=== PATIENT | male | born 1965 | race Caucasian/White ===

== ENCOUNTER 2019-09-11 11:58 | Inpatient (IN) ==
[2019-09-11] MEDS ORDERED: MOTRIN PO PRN (12:53)
[2019-09-11] MEDS ORDERED: PHENOBARBITAL IV PRN (12:53)
[2019-09-11] MEDS ORDERED: ZOFRAN IV PRN (12:53)
[2019-09-11] MEDS ORDERED: TYLENOL PO PRN (12:53)
[2019-09-11] MEDS ORDERED: D5W 1,000 ML IV PRN (12:53)
[2019-09-11] MEDS ORDERED: IMODIUM PO PRN ×2 (12:53)
[2019-09-11] MEDS ORDERED: MAALOX PLUS LIQUID PO PRN (12:53)
[2019-09-11] MEDS ORDERED: DULCOLAX PR PRN (12:53)
[2019-09-11] MEDS ORDERED: ZOFRAN IM PRN (12:53)
[2019-09-11] MEDS ORDERED: NICODERM PATCH TD PRN (12:53)
[2019-09-11] MEDS ORDERED: SENOKOT PO PRN (12:53)
[2019-09-11] MEDS ORDERED: ZOFRAN ODT PO PRN (12:53)
[2019-09-11] MEDS ORDERED: TUBERSOL ID ONE (12:53)
[2019-09-11] MEDS ORDERED: NICOTINE GUM BUCCAL PRN (12:53)
[2019-09-11 13:52] LABS: HEMATOCRIT 43.3 % (42.0-52.0); HEMOGLOBIN 15.1 g/dL (14.0-18.0); MCH 31.3 PG (27-31); MCHC 34.9 g/dL (33-37); MCV 89.6 FL (81-99); MPV 9.2 FL (7.4-10.4); RBC 4.83 XMIL (4.7-6.1); WBC 11.06 X1000 (4.8-10.8)
[2019-09-11 14:15] LABS: INR 0.95; PROTIME 13.1 Seconds (11.0-16.0)
[2019-09-11 14:24] LABS: ESTIMATED GFR > 60
[2019-09-11 14:25] LABS: AGAP 14; ALBUMIN 4.2 g/dL (3.5-5.0); ALKALINE PHOSPHATASE 96 U/L (32-122); AMYLASE 41 U/L (20-200); BUN 10 mg/dL (8-22); CALCIUM 9.6 mg/dL (8.8-10.2); CHLORIDE 89 mmol/L (98-107); COSMO 264; CREATININE 0.7 mg/dL (0.7-1.2); GLUCOSE 109 mg/dL (70-104); GOT 45 U/L (10-34); GPT 40 U/L (10-44); LIPASE 26 U/L (13-60); POTASSIUM 3.4 mmol/L (3.5-5.1); SODIUM 132 mmol/L (136-145); TCO2 29 mmol/L (25-35); TOTAL PROTEIN 7.9 g/dL (6.3-8.3)
[2019-09-11 17:39] LABS: URINE SOURCE CLEAN CATCH
[2019-09-11 17:43] LABS: BILIRUBIN URINE NEGATIVE (NEGATIVE); BLOOD URINE NEGATIVE (NEGATIVE); COLOR YELLOW; GLUCOSE URINE NEGATIVE (NEGATIVE); KETONE URINE NEGATIVE (NEGATIVE); LEUKOCYTES URINE SMALL (NEGATIVE); NITRITE URINE NEGATIVE (NEGATIVE); PROTEIN URINE NEGATIVE (NEGATIVE); SP GRAVITY URINE 1.011; TURBIDITY URINE CLEAR (CLEAR); UROBILINOGEN URINE NORMAL (NORMAL)
[2019-09-11 17:45] LABS: UR EPITHELIAL CELLS <10 /HPF (<10); URINE BACTERIA NEGATIVE /HPF; URINE RBC <10 /HPF (<10); URINE WBC <10 /HPF (<10)
[2019-09-11 18:02] LABS: UR AMPHETAMINES QUAL NONE DETECTED (NONE DETECT); UR BARBITUATES QUAL NONE DETECTED (NONE DETECT); UR BENZODIAZEPIN QUAL NONE DETECTED (NONE DETECT); UR CANNABINOIDS QUAL PRESUMPTIVE POSITIVE (NONE DETECT); UR COCAINE QUAL NONE DETECTED (NONE DETECT); UR METHADONE QUAL NONE DETECTED (NONE DETECT); UR METHAMPHETAMINE QUAL NONE DETECTED (NONE DETECT); UR OPIATES QUAL NONE DETECTED (NONE DETECT); UR OXYCODONE QUAL NONE DETECTED (NONE DETECT); UR PCP QUAL NONE DETECTED (NONE DETECT); UR PROPOXYPHENE QUAL NONE DETECTED (NONE DETECT); UR TCA QUAL NONE DETECTED (NONE DETECT)
[2019-09-11] MEDS ORDERED: ATARAX PO PRN (19:09)
[2019-09-11] MEDS ORDERED: SALINE LOCK IV FLUID XX ONE (19:09)
[2019-09-11] MEDS ORDERED: ROBAXIN PO PRN (19:09)
[2019-09-11] MEDS ORDERED: BENTYL PO PRN (19:09)
[2019-09-11] MEDS: LIBRIUM PO SCH (21:58)
[2019-09-12] MEDS: SEROQUEL PO PRN ×2 (00:16→20:59)
[2019-09-12] MEDS: DESYREL PO PRN ×2 (01:20→22:19)
[2019-09-12] MEDS: PROTONIX PO SCH ×2 (03:46→15:25)
[2019-09-12] MEDS: LIBRIUM PO SCH ×4 (03:46→20:59)
[2019-09-12] MEDS ORDERED: SYNTHROID PO SCH (09:00)
[2019-09-12] MEDS ORDERED: M.V.I.-12 10 ML, FOLIC ACID 1 MG, MAGNESIUM SULFATE 1 GM, THIAMINE 100 MG in NS 1,000 ML IV ONE (09:00)
[2019-09-12] MEDS: VITAMIN B-1 PO SCH (10:37)
[2019-09-12] MEDS: FOLIC ACID PO SCH (10:38)
[2019-09-12] MEDS: THERA M PLUS PO SCH (10:38)
--- NOTE | 2019-09-12 19:04 | PROGRESS NOTE ---
DATE: 09/12/2019 SUBJECTIVE: The patient notes that he is feeling a lot better. His tremors have improved. Nausea and vomiting has improved. His abdominal pain has improved. Still fatigued. Still having lots of cravings. OBJECTIVE: Vital signs reviewed. He is awake, alert, pleasant. He is in no distress.HEENT: Normocephalic. Neck supple. Cardiovascular: Regular rate. Chest clear. Abdomen soft. Extremities: Moves all extremities. Neurologic: No changes. ASSESSMENT: 1. Nausea and vomiting. 2. Abdominal. 3. Myalgias. 4. Paresthesias. 5. Paroxysmal sweating. 6. Alcohol abuse, withdrawal and stabilization. PLAN: We will continue the patient in the hospital. Continue to wean as tolerated cc: Thierno Brown MD MTDD
[2019-09-13] MEDS: LIBRIUM PO SCH ×4 (02:41→20:34)
[2019-09-13] MEDS: SYNTHROID PO SCH (06:13)
[2019-09-13] MEDS: PROTONIX PO SCH (06:13)
[2019-09-13] MEDS: THERA M PLUS PO SCH (09:39)
[2019-09-13] MEDS: VITAMIN B-1 PO SCH (09:39)
[2019-09-13] MEDS: FOLIC ACID PO SCH (09:39)
--- NOTE | 2019-09-13 17:18 | PROGRESS NOTE ---
DATE: 09/13/2019 SUBJECTIVE: Patient notes he is feeling a lot better. Denies any fevers, chills, cough, or congestion. PHYSICAL EXAMINATION: Vital Signs: Reviewed. General: Patient is awake and alert. He is in no distress. HEENT: Normocephalic. Neck: Supple. Cardiovascular: Regular rate. Chest: Clear. Abdomen: Soft. Obese. Extremities: Moves all extremities. Neurologic: No focal changes. Skin: Warm and dry. No rashes. ASSESSMENT: 1. Nausea and vomiting. 2. Abdominal pain. 3. Tremors. 4. Myalgias. 5. Paresthesias. 6. Mixed hypertension. 7. Alcohol abuse withdrawal and stabilization. PLAN: We will continue patient in the hospital. Continue to follow. Further orders as needed. Expected to be in the hospital 2 to 3 more days as we wean his librium. cc: Thierno Brown MD MTDD
--- NOTE | 2019-09-13 18:23 | HISTORY AND PHYSICAL ---
CHIEF COMPLAINT: Nausea, vomiting. HISTORY OF PRESENT ILLNESS: The patient is a 54-year-old male who unfortunately has had a longstanding history of alcohol use and abuse. He started drinking again. He is currently having nausea, vomiting, tremors and myalgias. He presented the hospital for assistance. SOCIAL HISTORY: Patient is single, he is on disability. Lives at home in [place]. PAST MEDICAL HISTORY: Significant for history of necrotizing fasciitis 4 years ago. He actually went into DTs while he was in the ICU due to this. History of hypertension, blackouts that are alcohol related. MEDICATIONS: Indapamide 2.5, Synthroid 88, escitalopram 20 and losartan 100. ALLERGIES: No known drug allergies. REVIEW OF SYSTEMS: CINA score is 20 secondary to nausea, vomiting, paroxysmal sweating, tremors, anxiety, he is unable sit still, he is agitated, has a headache, he has had insomnia, decreased oral intake. Denies any fevers, chills, cough, congestion, denies any dysuria, frequency, urgency. Does have tremors. Notes that his withdrawal symptoms continue to worsen the longer that he does not drink. SUBSTANCE ABUSE HISTORY: Patient was in treatment in 2014 inpatient. States over 6 weeks while he was inpatient, states that he has difficulty stopping drinking because his entire family drinks, he started at 21, currently drinks 18 to 24 beers a day. Does not smoke or use other illicit substances. FAMILY HISTORY: Positive for alcoholism. PHYSICAL: Vital signs reviewed. Patient is awake, alert, in no current respiratory distress, pleasant to talk with. HEENT: Normocephalic. Neck: Supple. CV: Regular rate. Chest: Clear . Abdomen: Soft. Extremities: Moves all extremities. Neuro: No focal changes . Skin: Warm dry, no rashes. He does have tremors with arms extended. He is frequently pacing about in the room while attempting to talk. ASSESSMENT: 1. Nausea, vomiting. 2. Abdominal pain. 3. Tremors. 4. Myalgias. 5. Paresthesias. 6. Hypertension. 7. Obesity. 8. Alcohol abuse withdrawal and stabilization. PLAN: We are going to admit him to the hospital, continue to follow for withdrawal. Will stabilize with Librium, continue counseling. Further orders as needed. cc: Thierno Brown MD
[2019-09-13] MEDS: SEROQUEL PO PRN (23:37)
[2019-09-14] MEDS: DESYREL PO PRN ×2 (01:01→01:40)
[2019-09-14] MEDS: COZAAR PO SCH ×2 (01:01→14:24)
[2019-09-14] MEDS: THERA M PLUS PO SCH (08:47)
[2019-09-14] MEDS: LIBRIUM PO SCH ×3 (08:47→20:48)
[2019-09-14] MEDS: FOLIC ACID PO SCH (08:47)
[2019-09-14] MEDS: PROTONIX PO SCH (08:47)
[2019-09-14] MEDS: LEXAPRO PO SCH (08:47)
[2019-09-14] MEDS: VITAMIN B-1 PO SCH (08:48)
[2019-09-14] MEDS: SYNTHROID PO SCH (08:48)
[2019-09-14] MEDS ORDERED: COZAAR PO SCH (09:00)
--- NOTE | 2019-09-14 12:43 | PROGRESS NOTE ---
DATE: 09/14/2019 SUBJECTIVE: Patient notes he is feeling a lot better. Denies any fevers or chills. Denies cough or congestion. Denies chest pain or palpitations. PHYSICAL EXAMINATION: Vital Signs: Reviewed and stable. His blood pressures have actually started elevating up to 171/70, we have not restarted his home medicines yet. general: Patient is awake, alert. He is in no current respiratory distress. HEENT: Normocephalic. Neck: Supple. Cardiovascular: Regular rate. Chest: Clear. Abdomen: Soft, nondistended, nontender, obese. Extremities: Moves all extremities. Neurologic: No changes. ASSESSMENT: 1. Nausea and vomiting. 2. Abdominal pain. 3. Myalgias. 4. Paresthesias. 5. Tremors. 6. Paroxysmal sweating. 7. Alcohol abuse withdrawal and stabilization. 8. Morbid obesity. 9. Hypertension. PLAN: We are going to restart the patient's home blood pressure medications. Follow his blood pressure. Continue to wean Librium, continue counseling, further orders as needed. cc: Thierno Brown MD
[2019-09-14] MEDS: SEROQUEL PO PRN (21:45)
[2019-09-15] MEDS: DESYREL PO PRN (00:15)
[2019-09-15] MEDS: PROTONIX PO SCH (08:08)
[2019-09-15] MEDS: VITAMIN B-1 PO SCH (08:08)
[2019-09-15] MEDS: FOLIC ACID PO SCH (08:08)
[2019-09-15] MEDS: LIBRIUM PO SCH ×2 (08:09→21:24)
[2019-09-15] MEDS: LEXAPRO PO SCH (08:09)
[2019-09-15] MEDS: SYNTHROID PO SCH (08:09)
[2019-09-15] MEDS: THERA M PLUS PO SCH (08:09)
[2019-09-15] MEDS: COZAAR PO SCH (08:19)
[2019-09-15] MEDS: SEROQUEL PO PRN (21:24)
--- NOTE | 2019-09-15 22:49 | PROGRESS NOTE ---
DATE: 09/15/2019 SUBJECTIVE: Patient has no complaints, notes overall he is feeling better. Denies any fevers, chills, cough, congestion. Denies chest pain or palpitations. OBJECTIVE: Vital Signs: Reviewed. Temperature 98 degrees, pulse 80, respiratory rate 18, BP 140/87. General: Patient is pleasant, currently in no respiratory distress. HEENT: Normocephalic. Neck: Supple. Cardiovascular: Regular rate. Chest: Clear. Abdomen: Soft. Extremities: Moves all extremities. Neurologic: No changes. ASSESSMENT: 1. Nausea and vomiting. 2. Abdominal pain. 3. Myalgias. 4. Paresthesias. 5. Paroxysmal sweating. 6. Alcohol abuse, withdrawal and stabilization. PLAN: We are going to continue patient in the hospital [*]. Continue counseling and continue to look for further inpatient care. cc: Thierno Brown MD
[2019-09-16] MEDS: DESYREL PO PRN ×2 (00:28→22:46)
[2019-09-16] MEDS: SYNTHROID PO SCH (06:07)
[2019-09-16] MEDS: PROTONIX PO SCH (06:07)
[2019-09-16] MEDS: THERA M PLUS PO SCH (09:33)
[2019-09-16] MEDS: LIBRIUM PO SCH (09:33)
[2019-09-16] MEDS: COZAAR PO SCH (09:33)
[2019-09-16] MEDS: FOLIC ACID PO SCH (09:33)
[2019-09-16] MEDS: LEXAPRO PO SCH (09:33)
[2019-09-16] MEDS: VITAMIN B-1 PO SCH (09:33)
[2019-09-16] MEDS: SEROQUEL PO PRN (20:02)
[2019-09-16 21:43] VITALS: BP 146/92
--- NOTE | 2019-09-16 22:34 | PROGRESS NOTE ---
DATE: 09/16/2019 SUBJECTIVE: The patient overall is feeling a lot better. He has had also no withdrawals symptoms current. He is eager to get to rehab. He has found a couple of places that hopefully he can transition to. PHYSICAL: Vital signs: Reviewed. General: He is awake, alert, obese male who is in no distress. HEENT: [*] Neck: Supple. Cardiovascular: Regular rate. Chest: Clear. Abdomen: Soft, obese. Extremities: He moves all extremities. Neurologic: No changes. ASSESSMENT AND PLAN: 1. Nausea and vomiting. 2. Myalgias. 3. Paresthesias. 4. Paroxysmal sweating. 5. Alcohol use and abuse. PLAN: We are going to continue the patient in the hospital. Further orders as needed. cc: Thierno Brown MD
[2019-09-17] MEDS: LEXAPRO PO SCH (08:14)
[2019-09-17] MEDS: PROTONIX PO SCH (08:14)
[2019-09-17] MEDS: FOLIC ACID PO SCH (08:14)
[2019-09-17] MEDS: VITAMIN B-1 PO SCH (08:14)
[2019-09-17] MEDS: LIBRIUM PO SCH (08:15)
[2019-09-17] MEDS: COZAAR PO SCH (08:15)
[2019-09-17] MEDS: SYNTHROID PO SCH (08:15)
[2019-09-17] MEDS: THERA M PLUS PO SCH (08:16)
[2019-09-17] MEDS ORDERED: LIBRIUM PO SCH (09:00)
[2019-09-17] MEDS ORDERED: PNEUMOVAX 23 IM ONE (09:05)
[2019-09-17] MEDS ORDERED: VIVITROL IM ONE (10:55)
--- NOTE | 2019-09-18 19:07 | DISCHARGE SUMMARY ---
ADMISSION DATE: 09/11/2019 DISCHARGE DATE: 09/17/2019 DISCHARGE DIAGNOSES: 1. Nausea and vomiting. 2. Abdominal pain. 3. Myalgias. 4. Paresthesias. 5. Paroxysmal sweating. 6. Alcohol abuse, withdrawal and stabilization. CONSULTATIONS: None. PROCEDURES: None. BRIEF HOSPITAL COURSE: The patient is a very pleasant 54-year-old male who presented to [facility] secondary to nausea, vomiting, abdominal pain, tremors, myalgias, paresthesias, paroxysmal sweating, jittery, anxious, fidgety, unable sit still. He was placed on high-dose Librium taper. Counseling was performed each day by myself. The Librium was continued to wean down. On discharge he is awake, alert. He is in no distress. He has actually wean totally off of Librium. We have given him 1 shot of Vivitrol. DISPOSITION: The patient will be discharged home. He has had 1 shot of Vivitrol, medication assisted treatment, he will follow up with further inpatient treatment as already set up. Discussed with him that once he becomes outpatient, he certainly needs to get into AA, have a sponsor, avoidance, etc. cc: Thierno Brown MD
== END 2019-09-17 12:05 | disposition home or self-care (01) | DRG 897 ==
LOC: P.DIRADM 11:58 → P.MEDSURG 12:20
PROVIDERS: ADMIT Family Medicine; ATTEND Family Medicine